=== PATIENT | female | born 1965 | race Two or more races ===

== ENCOUNTER 2018-01-18 11:24 | Emergency (ER) | payer OTHER ==
[~2018-01-18] VITALS: Ht 157.5 cm; Wt 68.0 kg
[2018-01-18 11:54] VITALS: BP 90/57
--- NOTE | 2018-01-18 13:08 | Diagnostic Imaging Report ---
Indication: Headache, bruising and swelling right anterior, status post head trauma Technique: Continuous helical CT scanning of the head was performed without intravenous contrast material. Axial and coronal 5 mm sections were generated. Radiation dose was minimized using automated exposure control Dose: Total Dose Length Product - DLP 1312.[address] Dose Index - CTDIvol(s) 70.38 mGy. Comparison: none Findings: The ventricular system is normal in size and configuration. There is no shift of midline structures. No abnormal extra-axial fluid collections are noted. There is no evidence of intracerebral bleeding. No other abnormal high or low density areas are noted within the brain. Intact calvarium. Visualized orbits and sinuses are unremarkable. The mastoids are clear Impression: Normal CT scan of the head without contrast material. The CT scanner at [facility] is accredited by the [employer] and the scans are performed using protocols designed to limit radiation exposure to as low as reasonably achievable to attain images of sufficient resolution adequate for diagnostic evaluation.
[2018-01-18 13:16] VITALS: BP 105/71
--- NOTE | 2018-01-19 10:33 | Emergency Room Report ---
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 While closing a door The door apparently had come off the hinges and struck her on the right forehead The door was a metal door which was fairly heavy This happened approximately 9:30 this morning Patient denies any lapse of consciousness however complains of feeling dizzy and nauseated Pain also goes to the right parietal and towards the occipital region Denies any focal weakness denies any chest pain or shortness of breath Allergies: Coded Allergies: No Known Allergies (Unverified , 01/18/18) Patient History Past Medical History: see triage record Pertinent Family History: none Last Menstrual Period: menopause Reviewed Nursing Documentation: PMH: Agreed; PSxH: Agreed Nursing Documentation-PMH Past Medical History: No Stated History Review of Systems All Other Systems: negative except mentioned in HPI Physical Exam Vital Signs Date Time Temp Pulse Resp B/P (MAP) Pulse Ox O2 Delivery O2 Flow Rate FiO2 01/18/18 11:54 98.2 69 14 90/57 99 Room Air 98.2 Sp02 EP Interpretation: reviewed, normal General Appearance: well appearing, no apparent distress Head: other - Proximally 2 x 2 centimeter hematoma right forehead Eyes: bilateral eye PERRL, bilateral eye EOMI ENT: hearing grossly normal, normal pharynx, TMs + canals normal, uvula midline Neck: full range of motion, supple, no meningismus, no bony tend Respiratory: lungs clear, normal breath sounds, no rhonchi, no respiratory distress, no retraction, no accessory muscle use Cardiovascular #1: normal peripheral pulses, regular rate, rhythm, no edema, no gallop, no JVD, no murmur Gastrointestinal: normal bowel sounds, non tender, soft, no mass, no organomegaly, non-distended, no guarding, no hernia, no pulsatile mass, no rebound Genitourinary: no CVA tenderness Musculoskeletal: normal inspection Neurologic: oriented x3, responsive, 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 as tested, motor strength/ tone normal, sensory intact Psychiatric: mood/affect normal Skin: normal color, no rash, warm/dry, palpation normal Lymphatic: normal inspection, no adenopathy Medical Decision Making Diagnostic Impression: Primary Impression: Acute head injury ER Course Here the patient is neurologically intact however given the Incident along with the door that was metal given the hematoma and the nausea given some of the balance complaints patient meets criteria for acute emergency imaging no signs of acute pathology are seen and patient was given closed head injury precautions for the next several days CT/MRI/US Diagnostic Results CT/MRI/US Diagnostic Results : Impression CT head no acute disease Last Vital Signs Date Time Temp Pulse Resp B/P (MAP) Pulse Ox O2 Delivery O2 Flow Rate FiO2 01/18/18 13:16 98.6 65 17 105/71 97 Room Air 98.2 Status: improved Disposition: HOME, SELF-CARE Condition: Improved Referrals: Torres Dorantes MD (PCP) Departure Forms: Return to Work Return to Work in (Days): 2 Return to Work Date: Jan 20, 2018 Patient Instructions: Head Injury, Adult, Hematoma, [id number] Additional Instructions: Patient is provided with the discharge instructions notified to follow up with primary doctor in the next 2-3 days otherwise return to the er with any worsening symptoms. Please note that this report is being documented using DRAGON technology. This can lead to erroneous entry secondary to incorrect interpretation by the dictating instrument. Anabell Swift DO Jan 19, 2018 10:33
== END 2018-01-18 13:16 | disposition home or self-care (01) ==
LOC: EMR 12:24
DX: S09.8XXA Other specified injuries of head, initial encounter (principal); W22.8XXA Striking against or struck by other objects, initial encounter; Y92.219 Unspecified school as the place of occurrence of the external cause; Y99.0 Civilian activity done for income or pay
CPT/HCPCS: 70450; 99284